=== PATIENT | male | born 1995 | race Caucasian/White ===

== ENCOUNTER 2017-08-02 17:14 | Emergency (ER) | payer OTHER ==
[~2017-08-02] VITALS: Ht 188 cm; Wt 101.2 kg
[2017-08-02 20:52] VITALS: BP 136/55
== END 2017-08-02 20:53 | disposition home or self-care (01) ==
LOC: EME 17:14
DX: S06.0X1A Concussion with loss of consciousness of 30 minutes or less, initial encounter (principal); W17.89XA Other fall from one level to another, initial encounter
CPT/HCPCS: 70450; 99281; 99284